=== PATIENT | female | born 1985 | race Two or more races ===

== ENCOUNTER 2020-10-03 10:30 | Inpatient (IN) | payer OTHER ==
[~2020-10-03] VITALS: Ht 172.7 cm; Wt 3.6 kg
[2020-10-11] MEDS ORDERED: PRENATAL CAPLE1 EAC1 PO (11:20)
[2020-10-14] MEDS ORDERED: OXYC1TAB9 PO (07:57)
[2020-10-14] MEDS ORDERED: KETO10TA2 PO (07:57)
== END 2020-10-14 11:11 | disposition home or self-care (01) | DRG 788 ==
LOC: LDR 10-11 06:50 → SURG-SUITE 10-11 12:41 → LDR 10-16 10:30
PROVIDERS: ADMIT Obstetrics & Gynecology; ATTEND Obstetrics & Gynecology
PROC: 4A1HXCZ Monitoring of Products of Conception, Cardiac Rate, External Approach (ICD-10-PCS; 2020-10-11)
PROC: 10D00Z1 Extraction of Products of Conception, Low, Open Approach (ICD-10-PCS; principal; 2020-10-11 10:00)
DX: O66.2 Obstructed labor due to unusually large fetus (principal); O64.1XX0 Obstructed labor due to breech presentation, not applicable or unspecified; Z3A.39 39 weeks gestation of pregnancy; Z37.0 Single live birth; Z20.828 Contact with and (suspected) exposure to other viral communicable diseases

== ENCOUNTER 2020-10-03 12:45 | Outpatient (CLI) | payer OTHER | END 2020-10-03 14:36 | disposition home or self-care (01) | LOC: NST 12:45 | PROVIDERS: ATTEND Obstetrics & Gynecology | DX: Z34.83 Encounter for supervision of other normal pregnancy, third trimester (principal) ==